=== PATIENT | female | born 1940 | race Caucasian/White ===

== ENCOUNTER 2019-11-11 19:39 | Inpatient (IN) | payer MEDICARE ==
[~2019-11-11] VITALS: Ht 149.9 cm; Wt 59.1 kg
[2019-11-11] MEDS: IV NORMAL SALINE 1000ML BAG 1,000 ML IV SCH (00:18)
[2019-11-11 20:01] LABS: BILIRUBIN,URINE NEGATIVE (NEG); CLARITY,URINE CLEAR; COLOR,URINE YELLOW; NITRITE,URINE NEGATIVE (NEG); PH,URINE 5.5 (<5.0-8.0); PROTEIN,URINE NEGATIVE (NEG-TRACE); UROBILINOGEN,URINE 0.2 mg/dL (0.2 mg/dL)
[2019-11-11 20:09] LABS: HYALINE CASTS, URINE MANY /HPF; SQUAMOUS EPITHELIAL CELL,UR MANY /LPF
[2019-11-11 20:10] LABS: BACTERIA,URINE 0 /HPF (0-FEW); RBC,URINE 0 /HPF (0-2); WBC,URINE 20-40 /HPF (0-4); YEAST,URINE PRESENT /HPF
--- NOTE | 2019-11-11 21:10 | PHYS DOC ---
Past Medical History Past Medical History: A-Fib, Diabetes-Type II, High Cholesterol Past Surgical History: No Surgical History Smoking Status: Never Smoker Alcohol Use: None General Adult EDM: Chief Complaint: NAUSEA/VOMITING/DIARRHA HPI: HPI: Patient is a 79 year old female patient who presents with nausea. Patient reports that her nausea has been continuous for the last several days. States she had been in [facility] admitted for the last 2 days, was discharged home at noon today with a prescription for Zofran and a diagnosis of intractable nausea. States that she had this at a previous time, and was never given a official diagnosis either. States she just has some abdominal discomfort. Denies any fever, denies any cough, denies any chest discomfort, does state some generalized abdominal tenderness. Also reports some increased urinary frequency. Denies dizziness, denies malaise, states she just feels like she needs to vomit. States she has not vomited for quite a while, states she has been eating and drinking when she was in the hospital Review of Systems: Review of Systems: Constitutional: Denies fever or chills. [] Eyes: Denies change in visual acuity. [] HENT: Denies nasal congestion or sore throat. [] Respiratory: Denies cough or shortness of breath. [] Cardiovascular: Denies chest pain or edema. [] GI: Denies vomiting, bloody stools or diarrhea. States nausea, abdominal discomfort [] : Reports some urinary frequency, some discomfort with urination for 2 days Musculoskeletal: Denies back pain or joint pain. [] Integument: Denies rash. [] Neurologic: Denies headache, focal weakness or sensory changes. [] Endocrine: Denies polyuria or polydipsia. [] Lymphatic: Denies swollen glands. [] Psychiatric: Denies depression or anxiety. [] Heart Score: HEART Score for Chest Pain: HEART Score for Chest Pain Response (Comments) Value History Slighlty/Non-Suspicious 0 ECG Nonspecific Repolarizatio 1 Age > 65 2 Risk Factors 1 or 2 Risk Factors 1 Troponin < Normal Limit 0 Total 4 Risk Factors: Risk Factors: DM, Current or recent (<one month) smoker, HTN, HLP, family history of CAD, obesity. Risk Scores: Score 0 - 3: 2.5% MACE over next 6 weeks - Discharge Home Score 4 - 6: 20.3% MACE over next 6 weeks - Admit for Clinical Observation Score 7 - 10: 72.7% MACE over next 6 weeks - Early Invasive Strategies Allergies: Allergies: Allergies Coded Allergies Type Severity Reaction Last Updated Verified No Known Drug Allergies 11/11/19 No Physical Exam: PE: Constitutional: Well developed, well nourished, no acute distress, non-toxic appearance. [] HENT: Normocephalic, atraumatic, bilateral external ears normal, oropharynx moist, no oral exudates, nose normal. [] Eyes: PERRLA, EOMI, conjunctiva normal, no discharge. [] Neck: Normal range of motion, no tenderness, supple, no stridor. [] Cardiovascular:Heart rate regular rhythm, no murmur [] Lungs & Thorax: Bilateral breath sounds clear to auscultation [] Abdomen: Bowel sounds normal, soft, mild tenderness noted widespread, active bowel sounds, minimally hyperactive left upper, no masses, no pulsatile masses. Bladder palpable [] Skin: Warm, dry, no erythema, no rash. [] Back: No tenderness, no CVA tenderness. [] Extremities: No tenderness, no cyanosis, no clubbing, ROM intact, no edema. [] Neurologic: Alert and oriented X 3, normal motor function, normal sensory function, no focal deficits noted. [] Psychologic: Affect normal, judgement normal, mood normal. [] Current Patient Data: Labs: Laboratory Tests Test 11/11/19 19:49 Urine Collection Type Unknown Urine Color Yellow Urine Clarity Clear Urine pH 5.5 (<5.0-8.0) Urine Specific [place] 1.020 (1.000-1.030) Urine Protein Negative mg/dL (NEG-TRACE) Urine Glucose (UA) Negative mg/dL (NEG) Urine Ketones (Stick) Negative mg/dL (NEG) Urine Blood Negative (NEG) Urine Nitrite Negative (NEG) Urine Bilirubin Negative (NEG) Urine Urobilinogen Dipstick 0.2 mg/dL (0.2 mg/dL) Urine Leukocyte Esterase Moderate (NEG) Urine RBC 0 /HPF (0-2) Urine WBC 20-40 /HPF (0-4) Urine Squamous Epithelial Cells Many /LPF Urine Transitional Epithelial Cells Few /LPF Urine Renal Epithelial Cells Few /LPF Urine Bacteria 0 /HPF (0-FEW) Urine Hyaline Casts Many /HPF Urine Mucus Marked /LPF Urine Yeast Present /HPF Vital Signs: Vital Signs Date Time Temp Pulse Resp B/P (MAP) Pulse Ox O2 Delivery O2 Flow Rate FiO2 11/11/19 20:37 98.7 69 18 155/63 (93) 95 Room Air 98.7 EKG: EKG: no acute ST changes. noted inverted T-waves I, aVL. no STEMI per Dr Roy. [] Radiology/Procedures: Radiology/Procedures: []Exam: Abdomen one view INDICATION: Abdominal pain TECHNIQUE: Supine views of the abdomen Comparisons: None FINDINGS: Air and stool are noted throughout the colon to level the rectum in a nonobstructive bowel gas pattern. No suspicious masses. Aortic calcifications are noted. Scoliotic curvature is seen in the lumbar spine. No acute fractures are identified. IMPRESSION: Nonobstructive bowel gas pattern. Electronically signed by: Kera Bhatti MD (11/11/2019 9:39 PM) [id number] Course & Med Decision Making: Course & Med Decision Making Pertinent Labs and Imaging studies reviewed. (See chart for details) [] Reviewed results, with noted UTI findings, albeit contaminated, with lactic acidosis, malaise. Will admit for treatment, evaluation as needed to manage nausea and reevaluate labs throughout the night. Discussed with Dr. Roy, agrees admission warranted. Will admit. Provide additional nausea medications, antibiotics and fluid. Dragon Disclaimer: Dragon Disclaimer: This electronic medical record was generated, in whole or in part, using a voice recognition dictation system. 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
[2019-11-11] MEDS ORDERED: METOCLOPRAMIDE HCL 10 MG/2 ML VIAL. IVP ONE (21:15)
--- NOTE | 2019-11-11 21:42 | RAD ---
Exam: Abdomen one view INDICATION: Abdominal pain TECHNIQUE: Supine views of the abdomen Comparisons: None FINDINGS: Air and stool are noted throughout the colon to level the rectum in a nonobstructive bowel gas pattern. No suspicious masses. Aortic calcifications are noted. Scoliotic curvature is seen in the lumbar spine. No acute fractures are identified. IMPRESSION: Nonobstructive bowel gas pattern. Electronically signed by: Kera Bhatti MD (11/11/2019 9:39 PM) [id number]
[2019-11-11 21:56] LABS: BASO % 0 % (0-3); EOS % 0 % (0-3); HEMATOCRIT 39.8 % (36.0-47.0); HEMOGLOBIN 13.7 g/dL (12.0-15.5); LYMPH # 1.5 x10^3/uL (1.0-4.8); LYMPH % 20 % (24-48); MEAN CORPUSCULAR HEMOGLOBIN 33 pg (25-35); MEAN CORPUSCULAR HGB CONC 34 g/dL (31-37); MEAN CORPUSCULAR VOLUME 96 fL (79-100); MONO # 0.6 x10^3/uL (0.0-1.1); MONO % 9 % (0-9); NEUT # 5.2 x10^3/uL (1.8-7.7); NEUT % 71 % (31-73); PLATELET COUNT 211 x10^3/uL (140-400); RED BLOOD COUNT 4.14 x10^6/uL (3.50-5.40); RED CELL DISTRIBUTION WIDTH 17.6 % (11.5-14.5); WHITE BLOOD COUNT 7.4 x10^3/uL (4.0-11.0)
[2019-11-11 22:06] LABS: CALCIUM 9.6 mg/dL (8.5-10.1); CREATININE 1.2 mg/dL (0.6-1.0); GFR 43.3; POTASSIUM 3.8 mmol/L (3.5-5.1)
[2019-11-11 22:12] LABS: ALBUMIN 3.7 g/dL (3.4-5.0); ALBUMIN/GLOBULIN RATIO 1.2 (1.0-1.7); TOTAL BILIRUBIN 0.2 mg/dL (0.2-1.0); TOTAL PROTEIN 6.9 g/dL (6.4-8.2)
[2019-11-11] MEDS ORDERED: MORPHINE SULFATE 2 MG/ML VIAL. IV PRN (22:45)
[2019-11-11] MEDS ORDERED: cefTRIAXone IV Push 1 GM VIAL. IVP ONE (22:45)
[2019-11-11] MEDS ORDERED: ONDANSETRON PF 4 MG/2 ML VIAL. IV ONE (22:45)
[2019-11-11] MEDS ORDERED: IV NORMAL SALINE 1000ML BAG 1,000 ML IV ONE (22:45)
[2019-11-12] MEDS: IV NORMAL SALINE 1000ML BAG 1,000 ML IV SCH ×4 (00:18→14:40)
[2019-11-12] MEDS: ONDANSETRON PF 4 MG/2 ML VIAL. IV PRN ×2 (04:47→20:15)
--- NOTE | 2019-11-12 04:54 | EKG ---
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
[2019-11-12 05:01] LABS: BASO % 1 % (0-3); EOS % 0 % (0-3); HEMATOCRIT 39.3 % (36.0-47.0); HEMOGLOBIN 13.3 g/dL (12.0-15.5); LYMPH # 1.4 x10^3/uL (1.0-4.8); LYMPH % 21 % (24-48); MEAN CORPUSCULAR HEMOGLOBIN 32 pg (25-35); MEAN CORPUSCULAR HGB CONC 34 g/dL (31-37); MEAN CORPUSCULAR VOLUME 95 fL (79-100); MONO # 0.6 x10^3/uL (0.0-1.1); MONO % 8 % (0-9); NEUT # 4.8 x10^3/uL (1.8-7.7); NEUT % 70 % (31-73); PLATELET COUNT 214 x10^3/uL (140-400); RED BLOOD COUNT 4.15 x10^6/uL (3.50-5.40); RED CELL DISTRIBUTION WIDTH 17.3 % (11.5-14.5); WHITE BLOOD COUNT 6.8 x10^3/uL (4.0-11.0)
[2019-11-12 05:38] LABS: CALCIUM 8.9 mg/dL (8.5-10.1); GFR 53.5; POTASSIUM 3.6 mmol/L (3.5-5.1)
--- NOTE | 2019-11-12 10:33 | PDOC1 ---
History and Physical Date of Admission Date of Admission DATE: 11/12/19 TIME: 10:32 Identification/Chief Complaint Chief Complaint SEEN IN ER , 79 year old female patient who presents with nausea. Patient reports that her nausea has been continuous for the last several days. States she had been in [facility] admitted for the last 2 days, was discharged home at noon today with a prescription for Zofran and a diagnosis of intractable nausea. she STILL has some ruq abdominal discomfort. Denies any fever, denies any cough, denies any chest discomfort, does state some generalized abdominal tenderness. Also reports some increased urinary frequency. Denies dizziness, denies malaise, states she just feels like she needs to vomit. States she has not vomited since yesterday Past Medical History Past Medical History Past Medical History Past Medical History: A-Fib, Diabetes-Type II, High Cholesterol Past Surgical History: No Surgical History Smoking Status: Never Smoker Alcohol Use: None fhx HTN Family History Family History: Hypertension Social History Smoke: No ALCOHOL: none Drugs: None Current Medications Current Medications Current Medications Metoclopramide HCl (Reglan Vial) 10 mg 1X ONCE IVP Last administered on 11/11/19at 21:23; Start 11/11/19 at 21:15; Stop 11/11/19 at 21:16; Status DC Sodium Chloride 1,000 ml @ 1,000 mls/hr 1X ONCE IV Last administered on 11/11/19at 23:02; Start 11/11/19 at 22:45; Stop 11/11/19 at 23:44; Status DC Ondansetron HCl (Zofran) 4 mg 1X ONCE IV Last administered on 11/11/19at 23:01; Start 11/11/19 at 22:45; Stop 11/11/19 at 22:47; Status DC Ceftriaxone Sodium (Rocephin) 1 gm 1X ONCE IVP Last administered on 11/11/19at 23:02; Start 11/11/19 at 22:45; Stop 11/11/19 at 22:46; Status DC Ondansetron HCl (Zofran) 4 mg PRN Q8HRS PRN IV NAUSEA/VOMITING Last administered on 11/12/19at 04:47; Start 11/11/19 at 22:45; Stop 11/12/19 at 22:44 Morphine Sulfate (Morphine Sulfate) 2 mg PRN Q2HR PRN IV PAIN; Start 11/11/19 at 22:45; Stop 11/12/19 at 22:44 Sodium Chloride 1,000 ml @ 125 mls/hr Q8H IV Last administered on 11/12/19at 00:18; Start 11/11/19 at 22:40; Stop 11/12/19 at 22:39 Allergies Allergies: Coded Allergies: No Known Drug Allergies (Unverified , 11/11/19) ROS Review of System Review of Systems: Review of Systems: Constitutional: Denies fever or chills. [] Eyes: Denies change in visual acuity. [] HENT: Denies nasal congestion or sore throat. [] Respiratory: Denies cough or shortness of breath. [] Cardiovascular: Denies chest pain or edema. [] GI: yesterday, vomiting, States nausea, abdominal discomfort [] : Reports some urinary frequency, some discomfort with urination for 2 days Musculoskeletal: Denies back pain or joint pain. [] Integument: Denies rash. [] Neurologic: Denies headache, focal weakness or sensory changes. [] Endocrine: Denies polyuria or polydipsia. [] Lymphatic: Denies swollen glands. [] Psychiatric: Denies depression or anxiety. [] 14 pt ros otherwise neg Physical Exam Physical Exam Constitutional: Well developed, well nourished, no acute distress, non-toxic appearance. [] HENT: Normocephalic, atraumatic, bilateral external ears normal, oropharynx moist, no oral exudates, nose normal. [] Eyes: PERRLA, EOMI, conjunctiva normal, no discharge. [] Neck: Normal range of motion, no tenderness, supple, no stridor. [] Cardiovascular:Heart rate regular rhythm, no murmur [] Lungs & Thorax: Bilateral breath sounds clear to auscultation [] Abdomen: Bowel sounds normal, soft, mild tenderness noted widespread, and ruq active bowel sounds, minimally hyperactive left upper, no masses, no pulsatile masses. Skin: Warm, dry, no erythema, no rash. [] Back: No tenderness, no CVA tenderness. [] Extremities: No tenderness, no cyanosis, no clubbing, ROM intact, no edema. [] Neurologic: Alert and oriented X 3, normal motor function, normal sensory function, no focal deficits noted. [] Psychologic: Affect normal, judgment normal, mood normal. [] General: Alert, Oriented X3, Cooperative, No acute distress HEENT: Atraumatic, EOMI, Mucous membr. moist/pink Lungs: Clear to auscultation Heart: RRR, no thrills, no gallops Breasts: Not examined Abdomen: Other (MILD RUQ TENDERNESS) Rectal Exam: not examined Extremities: No cyanosis, No edema Neuro: Normal speech, Cranial nerves 3-12 NL Psych/Mental Status: Mental status NL, Mood NL Vitals Vitals Vital Signs Date Time Temp Pulse Resp B/P (MAP) Pulse Ox O2 Delivery O2 Flow Rate FiO2 11/12/19 09:30 72 164/73 (103) 95 Nasal Cannula 2.0 11/11/19 20:37 98.7 18 98.7 Labs Labs Laboratory Tests Test 11/11/19 19:49 11/11/19 21:47 11/11/19 23:48 11/12/19 02:30 Urine Collection Type Unknown Urine Color Yellow Urine Clarity Clear Urine pH 5.5 (<5.0-8.0) Urine Specific [place] 1.020 (1.000-1.030) Urine Protein Negative mg/dL (NEG-TRACE) Urine Glucose (UA) Negative mg/dL (NEG) Urine Ketones (Stick) Negative mg/dL (NEG) Urine Blood Negative (NEG) Urine Nitrite Negative (NEG) Urine Bilirubin Negative (NEG) Urine Urobilinogen Dipstick 0.2 mg/dL (0.2 mg/dL) Urine Leukocyte Esterase Moderate (NEG) Urine RBC 0 /HPF (0-2) Urine WBC 20-40 /HPF (0-4) Urine Squamous Epithelial Cells Many /LPF Urine Transitional Epithelial Cells Few /LPF Urine Renal Epithelial Cells Few /LPF Urine Bacteria 0 /HPF (0-FEW) Urine Hyaline Casts Many /HPF Urine Mucus Marked /LPF Urine Yeast Present /HPF White Blood Count 7.4 x10^3/uL (4.0-11.0) Red Blood Count 4.14 x10^6/uL (3.50-5.40) Hemoglobin 13.7 g/dL (12.0-15.5) Hematocrit 39.8 % (36.0-47.0) Mean Corpuscular Volume 96 fL (79-100) Mean Corpuscular Hemoglobin 33 pg (25-35) Mean Corpuscular Hemoglobin Concent 34 g/dL (31-37) Red Cell Distribution Width 17.6 % (11.5-14.5) Platelet Count 211 x10^3/uL (140-400) Neutrophils (%) (Auto) 71 % (31-73) Lymphocytes (%) (Auto) 20 % (24-48) Monocytes (%) (Auto) 9 % (0-9) Eosinophils (%) (Auto) 0 % (0-3) Basophils (%) (Auto) 0 % (0-3) Neutrophils # (Auto) 5.2 x10^3/uL (1.8-7.7) Lymphocytes # (Auto) 1.5 x10^3/uL (1.0-4.8) Monocytes # (Auto) 0.6 x10^3/uL (0.0-1.1) Eosinophils # (Auto) 0.0 x10^3/uL (0.0-0.7) Basophils # (Auto) 0.0 x10^3/uL (0.0-0.2) Sodium Level 141 mmol/L (136-145) Potassium Level 3.8 mmol/L (3.5-5.1) Chloride Level 104 mmol/L (98-107) Carbon Dioxide Level 21 mmol/L (21-32) Anion Gap 16 (6-14) Blood Urea Nitrogen 18 mg/dL (7-20) Creatinine 1.2 mg/dL (0.6-1.0) Estimated GFR (Cockcroft-Gault) 43.3 BUN/Creatinine Ratio 15 (6-20) Glucose Level 157 mg/dL (70-99) Lactic Acid Level 3.2 mmol/L (0.4-2.0) 1.4 mmol/L (0.4-2.0) Calcium Level 9.6 mg/dL (8.5-10.1) Total Bilirubin 0.2 mg/dL (0.2-1.0) Aspartate Amino Transf (AST/SGOT) 43 U/L (15-37) Alanine Aminotransferase (ALT/SGPT) 56 U/L (14-59) Alkaline Phosphatase 77 U/L (46-116) Troponin I Quantitative 0.032 ng/mL (0.000-0.055) 0.026 ng/mL (0.000-0.055) Total Protein 6.9 g/dL (6.4-8.2) Albumin 3.7 g/dL (3.4-5.0) Albumin/Globulin Ratio 1.2 (1.0-1.7) Lipase 208 U/L (73-393) Test 11/12/19 04:40 11/12/19 05:03 White Blood Count 6.8 x10^3/uL (4.0-11.0) Red Blood Count 4.15 x10^6/uL (3.50-5.40) Hemoglobin 13.3 g/dL (12.0-15.5) Hematocrit 39.3 % (36.0-47.0) Mean Corpuscular Volume 95 fL (79-100) Mean Corpuscular Hemoglobin 32 pg (25-35) Mean Corpuscular Hemoglobin Concent 34 g/dL (31-37) Red Cell Distribution Width 17.3 % (11.5-14.5) Platelet Count 214 x10^3/uL (140-400) Neutrophils (%) (Auto) 70 % (31-73) Lymphocytes (%) (Auto) 21 % (24-48) Monocytes (%) (Auto) 8 % (0-9) Eosinophils (%) (Auto) 0 % (0-3) Basophils (%) (Auto) 1 % (0-3) Neutrophils # (Auto) 4.8 x10^3/uL (1.8-7.7) Lymphocytes # (Auto) 1.4 x10^3/uL (1.0-4.8) Monocytes # (Auto) 0.6 x10^3/uL (0.0-1.1) Eosinophils # (Auto) 0.0 x10^3/uL (0.0-0.7) Basophils # (Auto) 0.0 x10^3/uL (0.0-0.2) Sodium Level 142 mmol/L (136-145) Potassium Level 3.6 mmol/L (3.5-5.1) Chloride Level 105 mmol/L (98-107) Carbon Dioxide Level 23 mmol/L (21-32) Anion Gap 14 (6-14) Blood Urea Nitrogen 14 mg/dL (7-20) Creatinine 1.0 mg/dL (0.6-1.0) Estimated GFR (Cockcroft-Gault) 53.5 Glucose Level 175 mg/dL (70-99) Lactic Acid Level 1.5 mmol/L (0.4-2.0) Calcium Level 8.9 mg/dL (8.5-10.1) Troponin I Quantitative 0.041 ng/mL (0.000-0.055) Glucose (Fingerstick) 154 mg/dL (70-99) Laboratory Tests Test 11/11/19 19:49 11/11/19 21:47 11/11/19 23:48 11/12/19 02:30 Urine Collection Type Unknown Urine Color Yellow Urine Clarity Clear Urine pH 5.5 (<5.0-8.0) Urine Specific [place] 1.020 (1.000-1.030) Urine Protein Negative mg/dL (NEG-TRACE) Urine Glucose (UA) Negative mg/dL (NEG) Urine Ketones (Stick) Negative mg/dL (NEG) Urine Blood Negative (NEG) Urine Nitrite Negative (NEG) Urine Bilirubin Negative (NEG) Urine Urobilinogen Dipstick 0.2 mg/dL (0.2 mg/dL) Urine Leukocyte Esterase Moderate (NEG) Urine RBC 0 /HPF (0-2) Urine WBC 20-40 /HPF (0-4) Urine Squamous Epithelial Cells Many /LPF Urine Transitional Epithelial Cells Few /LPF Urine Renal Epithelial Cells Few /LPF Urine Bacteria 0 /HPF (0-FEW) Urine Hyaline Casts Many /HPF Urine Mucus Marked /LPF Urine Yeast Present /HPF White Blood Count 7.4 x10^3/uL (4.0-11.0) Red Blood Count 4.14 x10^6/uL (3.50-5.40) Hemoglobin 13.7 g/dL (12.0-15.5) Hematocrit 39.8 % (36.0-47.0) Mean Corpuscular Volume 96 fL (79-100) Mean Corpuscular Hemoglobin 33 pg (25-35) Mean Corpuscular Hemoglobin Concent 34 g/dL (31-37) Red Cell Distribution Width 17.6 % (11.5-14.5) Platelet Count 211 x10^3/uL (140-400) Neutrophils (%) (Auto) 71 % (31-73) Lymphocytes (%) (Auto) 20 % (24-48) Monocytes (%) (Auto) 9 % (0-9) Eosinophils (%) (Auto) 0 % (0-3) Basophils (%) (Auto) 0 % (0-3) Neutrophils # (Auto) 5.2 x10^3/uL (1.8-7.7) Lymphocytes # (Auto) 1.5 x10^3/uL (1.0-4.8) Monocytes # (Auto) 0.6 x10^3/uL (0.0-1.1) Eosinophils # (Auto) 0.0 x10^3/uL (0.0-0.7) Basophils # (Auto) 0.0 x10^3/uL (0.0-0.2) Sodium Level 141 mmol/L (136-145) Potassium Level 3.8 mmol/L (3.5-5.1) Chloride Level 104 mmol/L (98-107) Carbon Dioxide Level 21 mmol/L (21-32) Anion Gap 16 (6-14) Blood Urea Nitrogen 18 mg/dL (7-20) Creatinine 1.2 mg/dL (0.6-1.0) Estimated GFR (Cockcroft-Gault) 43.3 BUN/Creatinine Ratio 15 (6-20) Glucose Level 157 mg/dL (70-99) Lactic Acid Level 3.2 mmol/L (0.4-2.0) 1.4 mmol/L (0.4-2.0) Calcium Level 9.6 mg/dL (8.5-10.1) Total Bilirubin 0.2 mg/dL (0.2-1.0) Aspartate Amino Transf (AST/SGOT) 43 U/L (15-37) Alanine Aminotransferase (ALT/SGPT) 56 U/L (14-59) Alkaline Phosphatase 77 U/L (46-116) Troponin I Quantitative 0.032 ng/mL (0.000-0.055) 0.026 ng/mL (0.000-0.055) Total Protein 6.9 g/dL (6.4-8.2) Albumin 3.7 g/dL (3.4-5.0) Albumin/Globulin Ratio 1.2 (1.0-1.7) Lipase 208 U/L (73-393) Test 11/12/19 04:40 11/12/19 05:03 White Blood Count 6.8 x10^3/uL (4.0-11.0) Red Blood Count 4.15 x10^6/uL (3.50-5.40) Hemoglobin 13.3 g/dL (12.0-15.5) Hematocrit 39.3 % (36.0-47.0) Mean Corpuscular Volume 95 fL (79-100) Mean Corpuscular Hemoglobin 32 pg (25-35) Mean Corpuscular Hemoglobin Concent 34 g/dL (31-37) Red Cell Distribution Width 17.3 % (11.5-14.5) Platelet Count 214 x10^3/uL (140-400) Neutrophils (%) (Auto) 70 % (31-73) Lymphocytes (%) (Auto) 21 % (24-48) Monocytes (%) (Auto) 8 % (0-9) Eosinophils (%) (Auto) 0 % (0-3) Basophils (%) (Auto) 1 % (0-3) Neutrophils # (Auto) 4.8 x10^3/uL (1.8-7.7) Lymphocytes # (Auto) 1.4 x10^3/uL (1.0-4.8) Monocytes # (Auto) 0.6 x10^3/uL (0.0-1.1) Eosinophils # (Auto) 0.0 x10^3/uL (0.0-0.7) Basophils # (Auto) 0.0 x10^3/uL (0.0-0.2) Sodium Level 142 mmol/L (136-145) Potassium Level 3.6 mmol/L (3.5-5.1) Chloride Level 105 mmol/L (98-107) Carbon Dioxide Level 23 mmol/L (21-32) Anion Gap 14 (6-14) Blood Urea Nitrogen 14 mg/dL (7-20) Creatinine 1.0 mg/dL (0.6-1.0) Estimated GFR (Cockcroft-Gault) 53.5 Glucose Level 175 mg/dL (70-99) Lactic Acid Level 1.5 mmol/L (0.4-2.0) Calcium Level 8.9 mg/dL (8.5-10.1) Troponin I Quantitative 0.041 ng/mL (0.000-0.055) Glucose (Fingerstick) 154 mg/dL (70-99) Images Images PATIENT: ABRAHAN SIERRA GACCOUNT: [id number] : 1940 LOCATION: ED HOLD AGE: 79 SEX: F EXAM STATUS: ADM IN ORD. PHYSICIAN: NEREYDA GARZA MD REASON: ABDOMINAL PAIN PROCEDURE: ABDOMEN COMPLETE Examination: ABDOMEN COMPLETE History: Reason: ABDOMINAL PAIN / Spl. Instructions: / History: Comparison/Correlation: None Findings: Upper abdominal ultrasonogram were performed. Fat infiltration is present. Portal venous flow is unremarkable. No biliary dilatation. Common duct is unremarkable. Right kidney measures 11.6 cm longitudinal. Left kidney measures 10.8 cm longitudinal. No hydronephrosis. Pancreas is obscured by bowel gas. Calculus is present within the gallbladder measuring almost 3 cm in diameter. Other calculi may also be present. No findings of acute cholecystitis. Abdominal aorta and inferior vena cava are obscured by bowel gas. No upper abdominal ascites. Impression: Cholelithiasis. Electronically signed by: William Johnson MD (11/12/2019 11:47 AM) [id number] SEX: F EXAM STATUS: REG ER ORD. PHYSICIAN: PAPA PONCE APRN REASON: abdominal pain PROCEDURE: KUB Exam: Abdomen one view INDICATION: Abdominal pain TECHNIQUE: Supine views of the abdomen Comparisons: None FINDINGS: Air and stool are noted throughout the colon to level the rectum in a nonobstructive bowel gas pattern. No suspicious masses. Aortic calcifications are noted. Scoliotic curvature is seen in the lumbar spine. No acute fractures are identified. IMPRESSION: Nonobstructive bowel gas pattern. Electronically signed by: Kera Torrez MD (11/11/2019 9:39 PM) [id number] DICTATED and SIGNED BY: KERA TORREZ MD VTE Prophylaxis Ordered VTE Prophylaxis Devices: Yes VTE Pharmacological Prophylaxi: Yes Assessment/Plan Assessment/Plan Impression: Lactic acidosis RUQ PAIN UTI (urinary tract infection) Acute cystitis Intractable nausea and vomiting Calculus is present within the gallbladder measuring almost 3 cm in diameter. Other calculi may also be present. No findings of acute cholecystitis. ADMITTED NPO GI CONSULT ABD SONO IV ROCEPHIN 1 gm q 24 hrs urine culture IV FLUID SUPPORT IV ZOFRAN 4 MG Q 4 HRS PRN dvt prophylaxis D/W RN IN ER Justicifation of Admission Dx: Justifications for Admission: Justification of Admission Dx: Yes Sepsis: Infection NEREYDA GARZA MD Nov 12, 2019 10:33
[2019-11-12] MEDS ORDERED: ACETAMINOPHEN 325 MG TABLET. PO PRN (10:45)
[2019-11-12] MEDS ORDERED: DOCUSATE SODIUM 100 MG CAPSULE. PO PRN (10:45)
[2019-11-12] MEDS ORDERED: MAG HYDROX/ALUMINUM HYD/SIMETH 30 ML ORAL.SUSP PO PRN (10:45)
[2019-11-12] MEDS ORDERED: SODIUM PHOSPHATES 19/7GM 133 ML ENEMA. PR PRN (10:45)
[2019-11-12] MEDS ORDERED: 0.9 % SODIUM CHLORIDE 10 ML DISP.SYRIN. IV PRN (10:45)
[2019-11-12] MEDS ORDERED: guaiFENesin ORAL 200 MG/10 ML LIQUID. PO PRN (10:45)
[2019-11-12] MEDS ORDERED: hydrALAZINE 20 MG/ML VIAL. IVP PRN (10:45)
[2019-11-12] MEDS ORDERED: ALBUTEROL SULFATE 2.5 MG/3 ML NEBU. NEB PRN (10:45)
[2019-11-12] MEDS ORDERED: cefTRIAXone IV Push 1 GM VIAL. IVP SCH (11:00)
--- NOTE | 2019-11-12 11:50 | RAD ---
Examination: ABDOMEN COMPLETE History: Reason: ABDOMINAL PAIN / Spl. Instructions: / History: Comparison/Correlation: None Findings: Upper abdominal ultrasonogram were performed. Fat infiltration is present. Portal venous flow is unremarkable. No biliary dilatation. Common duct is unremarkable. Right kidney measures 11.6 cm longitudinal. Left kidney measures 10.8 cm longitudinal. No hydronephrosis. Pancreas is obscured by bowel gas. Calculus is present within the gallbladder measuring almost 3 cm in diameter. Other calculi may also be present. No findings of acute cholecystitis. Abdominal aorta and inferior vena cava are obscured by bowel gas. No upper abdominal ascites. Impression: Cholelithiasis. Electronically signed by: William Johnson MD (11/12/2019 11:47 AM) [id number]
[2019-11-12] MEDS ORDERED: POLYETHYLENE GLYCOL 3350 17 GM PACKET. PO PRN (12:15)
--- NOTE | 2019-11-12 12:16 | PDOC2 ---
GI CONSULT Reason For Consult: nausea, RUQ pain HPI: HPI: 79 y/o female seen in ER. Ill x 2 months - "my stomach hurts" and nausea. Has lost 25 pounds. Never vomiting. Has no appetite. Says she puts food in her mouth and spits it back out. Denies dysphagia and odynophagia. Points to lower abdomen for pain location. Pain is constant and aching. "Probably" would get worse with eating. Denies reflux, diarrhea, constipation, hematochezia, and melena. Denies liver, pancreas, and PUD history. "I have a gallbladder but it's okay." Lives with her sister. Occasional dizziness when stands up. No fever. "My urine doesn't have a color to it." Was at [facility] in 08/2019 and "had all kinds of tests" - says x-rays, EGD, colonoscopy, and GES - she says all were unrevealing. Thinks she was sent home w/ pain pills, nausea pills, and infection pills. They didn't help, so she went to and had more testing there (not sure what - doesn't think ever had head imaging). Didn't feel better so she came here. Able to review records @ [facility]: EGD by Dr. Lenin Ellington for anemia and +hemoccult showed patchy gastritis (no biopsies on anti-coagulation); H. pylori antigen negative. CTs w/ diverticulosis w/ possible sigmoid diverticulitis, gallstone, small hiatal hernia, and atherosclerosis. GI consult noted intermittent constipation improved w/ Miralax and possible improvement of abd pain after stooling, one episode of mild reflux, and intermittent pill dysphagia. Did not see records of colonoscopy or GES - seems outpt colonoscopy was scheduled at some point. A1c 9.4. PMH: PMH: A Fib, HTN, DM, HLD, hypothyroidism FH: Family History: Cancer (skin - sister) Social History: Smoke: No ALCOHOL: none Drugs: None ROS: GEN: Denies fevers, chills, sweats HEENT: Denies blurred vision, sore throat CV: Denies chest pain RESP: Denies shortness of air, cough GI: Per HPI : Denies hematuria, dysuria ENDO: +weight loss NEURO: +dizziness MSK: Denies weakness, joint pain/swelling SKIN: Denies jaundice, pruritus Vitals: Vitals: Vital Signs Date Time Temp Pulse Resp B/P (MAP) Pulse Ox O2 Delivery O2 Flow Rate FiO2 11/12/19 11:44 95 Nasal Cannula 2.0 11/12/19 10:30 70 20 169/79 (109) 11/11/19 20:37 98.7 98.7 Labs: Labs: Laboratory Tests Test 11/11/19 19:49 11/11/19 21:47 11/11/19 23:48 11/12/19 02:30 Urine Collection Type Unknown Urine Color Yellow Urine Clarity Clear Urine pH 5.5 (<5.0-8.0) Urine Specific [place] 1.020 (1.000-1.030) Urine Protein Negative mg/dL (NEG-TRACE) Urine Glucose (UA) Negative mg/dL (NEG) Urine Ketones (Stick) Negative mg/dL (NEG) Urine Blood Negative (NEG) Urine Nitrite Negative (NEG) Urine Bilirubin Negative (NEG) Urine Urobilinogen Dipstick 0.2 mg/dL (0.2 mg/dL) Urine Leukocyte Esterase Moderate (NEG) Urine RBC 0 /HPF (0-2) Urine WBC 20-40 /HPF (0-4) Urine Squamous Epithelial Cells Many /LPF Urine Transitional Epithelial Cells Few /LPF Urine Renal Epithelial Cells Few /LPF Urine Bacteria 0 /HPF (0-FEW) Urine Hyaline Casts Many /HPF Urine Mucus Marked /LPF Urine Yeast Present /HPF White Blood Count 7.4 x10^3/uL (4.0-11.0) Red Blood Count 4.14 x10^6/uL (3.50-5.40) Hemoglobin 13.7 g/dL (12.0-15.5) Hematocrit 39.8 % (36.0-47.0) Mean Corpuscular Volume 96 fL (79-100) Mean Corpuscular Hemoglobin 33 pg (25-35) Mean Corpuscular Hemoglobin Concent 34 g/dL (31-37) Red Cell Distribution Width 17.6 % (11.5-14.5) Platelet Count 211 x10^3/uL (140-400) Neutrophils (%) (Auto) 71 % (31-73) Lymphocytes (%) (Auto) 20 % (24-48) Monocytes (%) (Auto) 9 % (0-9) Eosinophils (%) (Auto) 0 % (0-3) Basophils (%) (Auto) 0 % (0-3) Neutrophils # (Auto) 5.2 x10^3/uL (1.8-7.7) Lymphocytes # (Auto) 1.5 x10^3/uL (1.0-4.8) Monocytes # (Auto) 0.6 x10^3/uL (0.0-1.1) Eosinophils # (Auto) 0.0 x10^3/uL (0.0-0.7) Basophils # (Auto) 0.0 x10^3/uL (0.0-0.2) Sodium Level 141 mmol/L (136-145) Potassium Level 3.8 mmol/L (3.5-5.1) Chloride Level 104 mmol/L (98-107) Carbon Dioxide Level 21 mmol/L (21-32) Anion Gap 16 (6-14) Blood Urea Nitrogen 18 mg/dL (7-20) Creatinine 1.2 mg/dL (0.6-1.0) Estimated GFR (Cockcroft-Gault) 43.3 BUN/Creatinine Ratio 15 (6-20) Glucose Level 157 mg/dL (70-99) Lactic Acid Level 3.2 mmol/L (0.4-2.0) 1.4 mmol/L (0.4-2.0) Calcium Level 9.6 mg/dL (8.5-10.1) Total Bilirubin 0.2 mg/dL (0.2-1.0) Aspartate Amino Transf (AST/SGOT) 43 U/L (15-37) Alanine Aminotransferase (ALT/SGPT) 56 U/L (14-59) Alkaline Phosphatase 77 U/L (46-116) Troponin I Quantitative 0.032 ng/mL (0.000-0.055) 0.026 ng/mL (0.000-0.055) Total Protein 6.9 g/dL (6.4-8.2) Albumin 3.7 g/dL (3.4-5.0) Albumin/Globulin Ratio 1.2 (1.0-1.7) Lipase 208 U/L (73-393) Test 11/12/19 04:40 11/12/19 05:03 White Blood Count 6.8 x10^3/uL (4.0-11.0) Red Blood Count 4.15 x10^6/uL (3.50-5.40) Hemoglobin 13.3 g/dL (12.0-15.5) Hematocrit 39.3 % (36.0-47.0) Mean Corpuscular Volume 95 fL (79-100) Mean Corpuscular Hemoglobin 32 pg (25-35) Mean Corpuscular Hemoglobin Concent 34 g/dL (31-37) Red Cell Distribution Width 17.3 % (11.5-14.5) Platelet Count 214 x10^3/uL (140-400) Neutrophils (%) (Auto) 70 % (31-73) Lymphocytes (%) (Auto) 21 % (24-48) Monocytes (%) (Auto) 8 % (0-9) Eosinophils (%) (Auto) 0 % (0-3) Basophils (%) (Auto) 1 % (0-3) Neutrophils # (Auto) 4.8 x10^3/uL (1.8-7.7) Lymphocytes # (Auto) 1.4 x10^3/uL (1.0-4.8) Monocytes # (Auto) 0.6 x10^3/uL (0.0-1.1) Eosinophils # (Auto) 0.0 x10^3/uL (0.0-0.7) Basophils # (Auto) 0.0 x10^3/uL (0.0-0.2) Sodium Level 142 mmol/L (136-145) Potassium Level 3.6 mmol/L (3.5-5.1) Chloride Level 105 mmol/L (98-107) Carbon Dioxide Level 23 mmol/L (21-32) Anion Gap 14 (6-14) Blood Urea Nitrogen 14 mg/dL (7-20) Creatinine 1.0 mg/dL (0.6-1.0) Estimated GFR (Cockcroft-Gault) 53.5 Glucose Level 175 mg/dL (70-99) Lactic Acid Level 1.5 mmol/L (0.4-2.0) Calcium Level 8.9 mg/dL (8.5-10.1) Troponin I Quantitative 0.041 ng/mL (0.000-0.055) Glucose (Fingerstick) 154 mg/dL (70-99) Allergies: Coded Allergies: No Known Drug Allergies (Unverified , 11/11/19) Medications: Current Medications Medications (Trade) Dose Ordered Sig/Desmond Route PRN Reason Start Time Stop Time Status Last Admin Dose Admin Metoclopramide HCl (Reglan Vial) 10 mg 1X ONCE IVP 11/11/19 21:15 11/11/19 21:16 DC 11/11/19 21:23 Sodium Chloride 1,000 ml @ 1,000 mls/hr 1X ONCE IV 11/11/19 22:45 11/11/19 23:44 DC 11/11/19 23:02 Ondansetron HCl (Zofran) 4 mg 1X ONCE IV 11/11/19 22:45 11/11/19 22:47 DC 11/11/19 23:01 Ceftriaxone Sodium (Rocephin) 1 gm 1X ONCE IVP 11/11/19 22:45 11/11/19 22:46 DC 11/11/19 23:02 Ondansetron HCl (Zofran) 4 mg PRN Q8HRS PRN IV NAUSEA/VOMITING 11/11/19 22:45 11/12/19 22:44 11/12/19 04:47 Sodium Chloride 1,000 ml @ 125 mls/hr Q8H IV 11/11/19 22:40 11/12/19 22:39 11/12/19 00:18 Imaging: Imaging: [facility] 11/11 IMPRESSION: Nonobstructive bowel gas pattern. Abd US 11/11 pending PE: GEN: NAD HEENT: Atraumatic, PERRL LUNGS: clear, NC 2L HEART: RRR ABD: NABS, S/ND, suprapubic discomfort EXTREMITY: No edema SKIN: No rashes, no jaundice NEURO/PSYCH: A & O 3 A/P: A/P: Anorexia, nausea, weight loss, suprapubic pain ?UTI, elevated lactic acid (mild - resolved), very mildly elevated AST CRC screen - ?recent colonoscopy Diverticular disease Cholelithiasis - on CT @ [facility] A Fib, HTN, DM, atherosclerosis -- Past workup at [facility] and including EGD and CTs. Note orders for abd US. ?mild reflux on recent EGD - start PPI, use anti-emetics per Dr. Sinclair. Okay to eat per GI. On Miralax in the past - resume. Will ask for [facility] records. Await urine culture. PUNEET ELIZABETH Nov 12, 2019 12:16
[2019-11-12] MEDS: ENOXAPARIN 40 MG/0.4 ML SYRINGE. SQ SCH (13:38)
--- NOTE | 2019-11-12 15:25 | NUR ---
Patient Esperanza Bennett , 79 year old female, admitted due to nausea, vomiting, arrived via bed at 1410. She's alert, oriented x4, on O2 at 2LPM, denies pain. Belongings checked and oriented to the unit. She's placed on comfortable position, call light placed within reach.
[2019-11-12 15:28] VITALS: BP 147/68
[2019-11-12] MEDS ORDERED: ACET325T21 PO (16:19)
[2019-11-12] MEDS ORDERED: AMLO5TAB10 PO (16:21)
[2019-11-12] MEDS ORDERED: AMIO200T4 PO (16:21)
[2019-11-12] MEDS ORDERED: APIX5TAB PO (16:22)
[2019-11-12] MEDS ORDERED: LIPITOR80 MG PO (16:23)
[2019-11-12] MEDS ORDERED: CANA100T PO (16:23)
[2019-11-12] MEDS ORDERED: BRIM5DRO2 OP (16:24)
[2019-11-12] MEDS ORDERED: DICY10CA3 PO (16:25)
[2019-11-12] MEDS ORDERED: GLIM4TAB8 PO (18:00)
[2019-11-12] MEDS ORDERED: LATA2.5D3 EACHEYE (18:01)
[2019-11-12] MEDS ORDERED: LEVO25TA4 PO (18:02)
[2019-11-12] MEDS ORDERED: LOSA100T14 PO (18:03)
[2019-11-12] MEDS ORDERED: METF10007 PO (18:03)
[2019-11-12] MEDS ORDERED: METO-239 PO (18:04)
[2019-11-12] MEDS ORDERED: ONDA4TAB12 PO (18:05)
[2019-11-12] MEDS ORDERED: PANT20TA2 PO (18:06)
[2019-11-12] MEDS ORDERED: SITA100T PO (18:07)
[2019-11-12] MEDS ORDERED: SERT50TA PO (18:07)
[2019-11-12] MEDS ORDERED: MULT-114 PO (18:09)
--- NOTE | 2019-11-12 18:14 | NUR ---
request for medical records, faxed to [facility] this afternoon, awaiting response
[2019-11-12 19:20] VITALS: BP 176/71
[2019-11-12] MEDS: cefTRIAXone IV Push 1 GM VIAL. IVP SCH (20:56)
[2019-11-12 23:42] VITALS: BP 148/54
[2019-11-13] VITALS (9 sets, daily range): BP systolic 135–171; BP diastolic 60–75
[2019-11-13] MEDS: IV NORMAL SALINE 1000ML BAG 1,000 ML IV SCH ×2 (00:53→17:03)
[2019-11-13] MEDS: PANTOPRAZOLE 40 MG TABLET.DR. PO SCH (08:04)
[2019-11-13] MEDS: ONDANSETRON PF 4 MG/2 ML VIAL. IV PRN (08:04)
[2019-11-13] MEDS: POLYETHYLENE GLYCOL 3350 17 GM PACKET. PO SCH (09:00)
--- NOTE | 2019-11-13 09:48 | PDOC ---
Subjective: Subjective: Ate some yesterday, doesn't want to eat this morning because she felt nauseated recently. Stooled - that helped? "All over" abdominal pain. Can't remember where she had a colonoscopy. Objective: Objective: [facility] records received: EGD - normal esophagus, stomach, and duodenum - no biopsies. Colonoscopy - four small polyps (ascending, transverse, sigmoid) not resected on Eliquis, zavala diverticulosis, internal and external hemorrhoids. Vital Signs: Vital Signs Date Time Temp Pulse Resp B/P (MAP) Pulse Ox O2 Delivery O2 Flow Rate FiO2 11/13/19 07:15 97.6 73 18 169/71 (103) 97 Nasal Cannula 2.0 97.6 Labs: Laboratory Tests Test 11/12/19 16:01 11/12/19 21:22 11/13/19 07:47 Glucose (Fingerstick) 207 mg/dL 108 mg/dL 160 mg/dL URINE CULTURE Final Final 10,000 CFU/ML Normal genitourinary lyn, not indicative of infection on 11/13/19 at 0926 Imaging: Abd US 11/11 Findings: Upper abdominal ultrasonogram were performed. Fat infiltration is present. Portal venous flow is unremarkable. No biliary dilatation. Common duct is unremarkable. Right kidney measures 11.6 cm longitudinal. Left kidney measures 10.8 cm longitudinal. No hydronephrosis. Pancreas is obscured by bowel gas. Calculus is present within the gallbladder measuring almost 3 cm in diameter. Other calculi may also be present. No findings of acute cholecystitis. Abdominal aorta and inferior vena cava are obscured by bowel gas. No upper abdominal ascites. Impression: Cholelithiasis. PE: GEN: NAD - up in chair, breakfast tray untouched, has emesis basin handy LUNGS: clear, NC 2L HEART: RRR ABD: soft, mostly suprapubic discomfort NEURO/PSYCH: A & O 3, forgetful A/P: Anorexia, nausea, abd pain - recent EGD x 2, also recent colonoscopy Known cholelithiasis A Fib, HTN, DM, atherosclerosis -- Will review any need for further GI testing w/ Dr. Plaza. Continue PPI and Miralax. Needs follow-up on colon polyps eventually. Defer antibiotics, anti-coagulation, home meds to primary. Justicifation of Admission Dx: Justifications for Admission: Justification of Admission Dx: Yes Sepsis: Infection PUNEET ELIZABETH Nov 13, 2019 09:48
[2019-11-13] MEDS: ENOXAPARIN 40 MG/0.4 ML SYRINGE. SQ SCH (11:49)
--- NOTE | 2019-11-13 12:35 | NUR ---
SW following. Reviewed chart and spoke with RN and CM. Spoke with Dr. Peraza who stated pt is a potential discharge for 11/14/2019. Pt from home and stated no concerns about returning home. Pt on 2l 02. Pt stated no 02 at home. Pt on IV Rocephin. SW to continue following.
--- NOTE | 2019-11-13 14:09 | PDOC ---
[employer]GRESS NOTE Chief Complaint Chief Complaint Lactic acidosisimproved Abdominal pain secondary to cholelithiasis with likely biliary colic UTI (urinary tract infection) Acute cystitis Intractable nausea and vomiting Acute renal failure improved PLAN Continue IV fluids PT OT evaluation Zofran as needed Orthostatic vital signs Will continue empiric antibiotics and stop before discharge Lovenox for DVT prophylaxis Regular diet Full code Discussed with RN and CARLIE Dispo: Pending PT OT evaluation anticipate discharge for tomorrow. History of Present Illness History of Present Illness 79 year old female patient who presents with nausea. Patient reports that her nausea has been continuous for the last several days. States she had been in [facility] admitted for the last 2 days, was discharged home at noon today with a prescription for Zofran and a diagnosis of intractable nausea. she STILL has some ruq abdominal discomfort. Denies any fever, denies any cough, denies any chest discomfort, does state some generalized abdominal tenderness. Also reports some increased urinary frequency. Denies dizziness, denies malaise, states she just feels like she needs to vomit. States she has not vomited since yesterday 11/13/2019 No acute events overnight. Patient seen and examined bedside today. Patient continues to complain of nausea. Upon further questioning, she states that she is gets nauseated when getting out of bed and moving. There is no association with meals. She does not have any acute vomiting at this time. There is no vertigo or nystagmus appreciated. Patient denies any recent falls. Patient has tolerating diet and is ambulating on her own. Vitals/I&O Vitals/I&O: Vital Signs Date Time Temp Pulse Resp B/P (MAP) Pulse Ox O2 Delivery O2 Flow Rate FiO2 11/13/19 11:50 72 171/68 11/13/19 11:11 98.7 17 94 Nasal Cannula 2.0 98.7 I & O 11/12/19 11/12/19 11/13/19 15:00 23:00 07:00 Intake Total 1000 ml 550 ml 240 ml Balance 1000 ml 550 ml 240 ml Physical Exam Physical Exam: General: Alert, Oriented X3, Cooperative, No acute distress HEENT: Atraumatic, EOMI, Mucous membr. moist/pink Lungs: Clear to auscultation Heart: RRR, no thrills, no gallops Breasts: Not examined Abdomen: Other (MILD RUQ TENDERNESS) Rectal Exam: not examined Extremities: No cyanosis, No edema Neuro: Normal speech, Cranial nerves 3-12 NL Psych/Mental Status: Mental status NL, Mood NL General: Alert, Oriented X3, Cooperative, No acute distress Abdomen: Other (MILD RUQ TENDERNESS) Extremities: No cyanosis, No edema Labs Labs: Laboratory Tests Test 11/12/19 16:01 11/12/19 21:22 11/13/19 07:47 11/13/19 11:34 Glucose (Fingerstick) 207 mg/dL (70-99) 108 mg/dL (70-99) 160 mg/dL (70-99) 173 mg/dL (70-99) Review of Systems Review of Systems: CONSTITUIONAL: Denies weight loss, fever and chills. HEENT: Denies changes in vision and hearing. RESPIRATORY: Denies SOB and cough. CV: Denies palpitations and CP. GI: Denies abdominal pain, nausea, vomiting and diarrhea. : Denies dysuria and urinary frequency. MSK: Denies myalgia and joint pain. SKIN: Denies rash and pruritus. NEUROLOGICAL: Denies headache and syncope. PSYCHIATRIC: Denies recent changes in mood. Denies anxiety and depression. Comment Review of Relevant I have reviewed the following items ivan (where applicable) has been applied. Medications: Current Medications Medications (Trade) Dose Ordered Sig/Desmond Route PRN Reason Start Time Stop Time Status Last Admin Dose Admin Pantoprazole Sodium (Protonix) 40 mg DAILYAC PO 11/13/19 07:30 11/13/19 08:04 Ceftriaxone Sodium (Rocephin) 1 gm QHS IVP 11/12/19 21:00 11/12/19 20:56 Justicifation of Admission Dx: Justifications for Admission: Justification of Admission Dx: Yes Sepsis: Infection VIET GIANG MD Nov 13, 2019 14:09
[2019-11-13] MEDS: LOSARTAN POTASSIUM 50 MG TABLET. PO SCH (14:23)
[2019-11-13] MEDS: amLODIPine BESYLATE 5 MG TABLET PO SCH (14:24)
[2019-11-13] MEDS: LEVOTHYROXINE 25 MCG TABLET. PO SCH (14:24)
[2019-11-13] MEDS: APIXABAN 5 MG TABLET. PO SCH ×2 (14:24→20:29)
[2019-11-13] MEDS: METOPROLOL SUCC 24HR ER 25 MG TAB.ER.24H. PO SCH (14:25)
[2019-11-13] MEDS ORDERED: ANTI-COAG MONITOR BY PHARMACY. MC PRN (17:00)
[2019-11-13] MEDS: cefTRIAXone IV Push 1 GM VIAL. IVP SCH (20:29)
[2019-11-14 03:07] VITALS: BP 148/63
[2019-11-14] MEDS: LEVOTHYROXINE 25 MCG TABLET. PO SCH (05:29)
[2019-11-14] MEDS: IV NORMAL SALINE 1000ML BAG 1,000 ML IV SCH (05:29)
[2019-11-14 07:50] VITALS: BP 156/59
[2019-11-14] MEDS: METOPROLOL SUCC 24HR ER 25 MG TAB.ER.24H. PO SCH (08:49)
[2019-11-14] MEDS: POLYETHYLENE GLYCOL 3350 17 GM PACKET. PO SCH (08:51)
[2019-11-14] MEDS: amLODIPine BESYLATE 5 MG TABLET PO SCH (08:51)
[2019-11-14] MEDS: LOSARTAN POTASSIUM 50 MG TABLET. PO SCH (08:51)
[2019-11-14] MEDS: APIXABAN 5 MG TABLET. PO SCH (08:52)
[2019-11-14] MEDS: PANTOPRAZOLE 40 MG TABLET.DR. PO SCH (08:52)
[2019-11-14] MEDS: ENOXAPARIN 40 MG/0.4 ML SYRINGE. SQ SCH (11:00)
--- NOTE | 2019-11-14 11:15 | PDOC ---
Subjective: Subjective: Better today - ate some, nausea not bothersome. Stooled yesterday, not yet today. Feels well enough to go home. Lower abd discomfort. Objective: Objective: D/w Dr. Peraza - consideration for DC today after therapy sees. Vital Signs: Vital Signs Date Time Temp Pulse Resp B/P (MAP) Pulse Ox O2 Delivery O2 Flow Rate FiO2 11/14/19 08:51 68 156/59 11/14/19 08:00 Room Air 11/14/19 07:50 98.0 18 97 98.0 11/13/19 15:33 2.0 Labs: Laboratory Tests Test 11/13/19 11:34 11/13/19 16:32 11/13/19 20:38 11/14/19 07:18 Glucose (Fingerstick) 173 mg/dL (70-99) 152 mg/dL (70-99) 166 mg/dL (70-99) 196 mg/dL (70-99) Test 11/14/19 11:10 Glucose (Fingerstick) 217 mg/dL (70-99) PE: GEN: NAD, up in chair LUNGS: clear anteriorly HEART: RRR ABD: soft, suprapubic discomfort NEURO/PSYCH: A & O 3 A/P: Anorexia, nausea - better; ?GERD - recent workup @ [facility] and [facility] Suprapubic discomfort - urine cx neg Cholelithiasis -- DC okay w/ GI. Continue PPI - discussed in detail w/ her. Can follow-up as outpt if ongoing issues, consider GES. Re: elevated lactate - does take metformin which can cause. Justicifation of Admission Dx: Justifications for Admission: Justification of Admission Dx: Yes Sepsis: Infection PUNEET ELIZABETH Nov 14, 2019 11:15
[2019-11-14 11:18] VITALS: BP 159/65
[2019-11-14] MEDS ORDERED: ONDANSETRON ODT 4 MG TAB.RAPDIS. PO PRN (12:30)
--- NOTE | 2019-11-14 12:34 | SNU/HH DC ---
DISCHARGE WITH HOME HEALTH DISCHARGE INFORMATION: Discharge Date: Nov 14, 2019 Condition on Discharge: Stable CODE STATUS: Code Status: Full HOME HEALTH: Face to Face: I certify this patient is under my care and that I, or a nurse practitioner or rosalva jackson[employer] music assistant working with me, had a face to face encounter that meets the physician face to face encounter requirements with this patient on []. Alf For: Diabetic Care, Medication Management RN For Eval/Treatment: Yes Physical Therapy For: Evalulation/Treatment Occupational Therapy For: Evaluation/Treatment Home Health Aide For: Self-care Pt Meets Homebound Status: Unsteady balance w/ amb, POST DISCHARGE ORDERS: Activity Instructions for Disc: Resume previous activity DIET AFTER DISCHARGE: ADA CHECKS AFTER DISCHARGE: Checks after discharge: Check blood press - daily, Check blood sugar, ac/hs FOLLOW-UP: Follow up with: follow up with GI for colonoscopy if needed CERTIFICATION STATEMENT: Certification Statement: Certification Statement: Based on the above finding, I certify that this patient is confined to the home and needs intermittent mcc care, physical therapy and/or speech therapy, or continues to need occupational therapy.~ This patient is under my care, and I have initiated the establishment of the plan of care.~ This patient will be followed by myself or a community physician who will periodically review the plan of care. Home Meds Reported Medications Multivitamin With Minerals (MULTIVITAMINS WITH MINERALS) 1 Each Tablet, 1 TAB PO DAILY for supplement for 30 Days, #30 TAB 0 Refills 15/20 Sitagliptin Phosphate (JANUVIA) 100 Mg Tablet, 1 TAB PO DAILY for diabetes, #30 TAB 5 Refills 15/20 Sertraline Hcl (ZOLOFT) 50 Mg Tablet, 1 TAB PO DAILY for depression, #30 TAB 2 Refills 15/20 Pantoprazole Sodium (PROTONIX) 20 Mg Tablet.dr, 1 TAB PO BID for GERD, #30 TAB 7/15/20 Ondansetron (ONDANSETRON ODT) 4 Mg Tab.rapdis, 1 TAB PO PRN Q6-8HRS for nausea, vomiting, #16 TAB /15/20 Metoprolol Succinate (METOPROLOL SUCCINATE ( XL )) 25 Mg Tab.er.24h, 0.5 TAB PO DAILY for hypertension, #30 TAB 5 Refills 15/20 Metformin Hcl (METFORMIN HCL) 1,000 Mg Tablet, 1000 MG PO BIDWMEALS for diabetes, TAB 11/12/19 Losartan Potassium (LOSARTAN POTASSIUM) 100 Mg Tablet, 100 MG PO DAILY for HYPERTENSION, TAB 11/12/19 Levothyroxine Sodium (LEVOTHYROXINE SODIUM) 25 Mcg Tablet, 1 TAB PO DAILY for hypothyroidism, #30 TAB 5 Refills 11/12/19 Latanoprost (LATANOPROST) 2.5 Ml Drops, 1 DROP EACHEYE QHS for cataract, #7.5 ML 3 Refills 11/12/19 Glimepiride (GLIMEPIRIDE) 4 Mg Tablet, 1 TAB PO DAILY for diabetes, #30 TAB 5 Refills 11/12/19 Dicyclomine Hcl (DICYCLOMINE HCL) 10 Mg Capsule, 10 MG PO QID for abdominal pain, CAP 11/12/19 Brimonidine Tartrate/Timolol (COMBIGAN EYE DROPS) 5 Ml Drops, 5 ML OP BID for cataract, DROP 11/12/19 Canagliflozin (INVOKANA) 100 Mg Tablet, 1 TAB PO DAILY for diabetes for 30 Days, #30 TAB 0 Refills 11/12/19 Atorvastatin Calcium (LIPITOR) 80 Mg Tablet, 1 TAB PO DAILY for hyperlipidemia, #30 TAB 5 Refills 11/12/19 Apixaban (ELIQUIS) 5 Mg Tablet, 5 MG PO BID for A fib, TAB 11/12/19 Amlodipine Besylate (AMLODIPINE BESYLATE) 5 Mg Tablet, 5 MG PO DAILY for hypertension, TAB 11/12/19 Amiodarone Hcl (AMIODARONE HCL) 200 Mg Tablet, 2 TAB PO DAILY for A fib, #90 TAB 1 Refill 11/12/19 Acetaminophen (ACETAMINOPHEN) 325 Mg Tablet, 2 TAB PO PRN DAILY PRN for pain or fever for 30 Days, #30 TAB 0 Refills 11/12/19 VIET GIANG MD Nov 14, 2019 12:34
--- NOTE | 2019-11-14 12:35 | NUR ---
CARLIE following. Reviewed chart and spoke with RN and CM. PT/OT recommendation is home with HH. Spoke with pt who is agreeable to a referral for HH. CARLIE phoned and faxed referral to [facility], , (fax). Patient Choice of Vendor form completed. [facility] verified that they take pt's insurance. Coordinated care with Dr. Peraza. Pt to discharge home today with her sister and HH on room air and oral medications. CARLIE awaiting final discharge orders. Addendum: 11/14/19 at 1611 by TRINITY SEXTON Final discharge orders phoned and faxed to [facility], , (fax).
--- NOTE | 2019-11-14 14:40 | PDOC3 ---
[facility]-Discharge Summary Date of Admission: Date of Admission: Nov 12, 2019 Date of Discharge: Date of Discharge: Nov 14, 2019 Admission Diagnosis: Admitting Diagnosis: Lactic acidosis RUQ PAIN secondary to likely cholelithiasis UTI (urinary tract infection) Acute cystitis Intractable nausea and vomiting Discharge Diagnosis: Discharge Diagnosis: Lactic acidosisimproved Abdominal pain secondary to cholelithiasis with likely biliary colic UTI (urinary tract infection) Acute cystitis Intractable nausea and vomiting Acute renal failure due to vasomotor nephropathyimproved Hospital Course: Hospital Course: 79 year old female patient who presents with nausea. Patient reports that her nausea has been continuous for the last several days. States she had been in [facility] admitted for the last 2 days, was discharged home at noon today with a prescription for Zofran and a diagnosis of intractable nausea. she STILL has some ruq abdominal discomfort. Denies any fever, denies any cough, denies any chest discomfort, does state some generalized abdominal tenderness. Also reports some increased urinary frequency. Denies dizziness, denies malaise, states she just feels like she needs to vomit. States she has not vomited since yesterday Patient admitted for further care and was treated with IV antibiotics and IV antiemetic medications. Her symptoms had some improved slightly upon further history taking patient states that her nausea occurs while getting out of bed. Her nausea has no association with pain or meals. At this point physical therapy was ordered to evaluate who recommended home health and physical therapy and possible some vestibular rehab. Orthostatic vital signs was completed during hospital stay and was negative. On day of discharge patient's symptoms had improved and states that she was ready to go home. Patient was also seen by gastroenterology for her previous history of colon polyps and GI bleeding. She will be evaluated as an outpatient. Rest of hospital course was uneventful Disposition: Disposition/Orders: D/C to Home w/ HH Activity: Activity: Resume previous activity Diet: Diet: Soft Medications: Home Meds Reported Medications Multivitamin With Minerals (MULTIVITAMINS WITH MINERALS) 1 Each Tablet, 1 TAB PO DAILY for supplement for 30 Days, #30 TAB 0 Refills 11/12/19 Sitagliptin Phosphate (JANUVIA) 100 Mg Tablet, 1 TAB PO DAILY for diabetes, #30 TAB 5 Refills 20 Sertraline Hcl (ZOLOFT) 50 Mg Tablet, 1 TAB PO DAILY for depression, #30 TAB 2 Refills 11/12/19 Pantoprazole Sodium (PROTONIX) 20 Mg Tablet.dr, 1 TAB PO BID for GERD, #30 TAB 11/12/19 Ondansetron (ONDANSETRON ODT) 4 Mg Tab.rapdis, 1 TAB PO PRN Q6-8HRS for nausea, vomiting, #16 TAB 11/12/19 Metoprolol Succinate (METOPROLOL SUCCINATE ( XL )) 25 Mg Tab.er.24h, 0.5 TAB PO DAILY for hypertension, #30 TAB 5 Refills 11/12/19 Metformin Hcl (METFORMIN HCL) 1,000 Mg Tablet, 1000 MG PO BIDWMEALS for diabetes, TAB 11/12/19 Losartan Potassium (LOSARTAN POTASSIUM) 100 Mg Tablet, 100 MG PO DAILY for HYPERTENSION, TAB 11/12/19 Levothyroxine Sodium (LEVOTHYROXINE SODIUM) 25 Mcg Tablet, 1 TAB PO DAILY for hypothyroidism, #30 TAB 5 Refills 11/12/19 Latanoprost (LATANOPROST) 2.5 Ml Drops, 1 DROP EACHEYE QHS for cataract, #7.5 ML 3 Refills 11/12/19 Dicyclomine Hcl (DICYCLOMINE HCL) 10 Mg Capsule, 10 MG PO QID for abdominal pain, CAP 11/12/19 Brimonidine Tartrate/Timolol (COMBIGAN EYE DROPS) 5 Ml Drops, 5 ML OP BID for cataract, DROP 11/12/19 Canagliflozin (INVOKANA) 100 Mg Tablet, 1 TAB PO DAILY for diabetes for 30 Days, #30 TAB 0 Refills 11/12/19 Atorvastatin Calcium (LIPITOR) 80 Mg Tablet, 1 TAB PO DAILY for hyperlipidemia, #30 TAB 5 Refills 11/12/19 Apixaban (ELIQUIS) 5 Mg Tablet, 5 MG PO BID for A fib, TAB 11/12/19 Amlodipine Besylate (AMLODIPINE BESYLATE) 5 Mg Tablet, 5 MG PO DAILY for hypertension, TAB 11/12/19 Amiodarone Hcl (AMIODARONE HCL) 200 Mg Tablet, 2 TAB PO DAILY for A fib, #90 TAB 1 Refill 11/12/19 Discontinued Reported Medications Glimepiride (GLIMEPIRIDE) 4 Mg Tablet, 1 TAB PO DAILY for diabetes, #30 TAB 5 Refills 11/12/19 Acetaminophen (ACETAMINOPHEN) 325 Mg Tablet, 2 TAB PO PRN DAILY PRN for pain or fever for 30 Days, #30 TAB 0 Refills 11/12/19 Scheduled Amiodarone Hcl (Amiodarone Hcl), 2 TAB PO DAILY, (Reported) Amlodipine Besylate (Amlodipine Besylate), 5 MG PO DAILY, (Reported) Apixaban (Eliquis), 5 MG PO BID, (Reported) Atorvastatin Calcium (Lipitor), 1 TAB PO DAILY, (Reported) Brimonidine Tartrate/Timolol (Combigan Eye Drops), 5 ML OP BID, (Reported) Canagliflozin (Invokana), 1 TAB PO DAILY, (Reported) Dicyclomine Hcl (Dicyclomine Hcl), 10 MG PO QID, (Reported) Latanoprost (Latanoprost), 1 DROP EACHEYE QHS, (Reported) Levothyroxine Sodium (Levothyroxine Sodium), 1 TAB PO DAILY, (Reported) Losartan Potassium (Losartan Potassium), 100 MG PO DAILY, (Reported) Metformin Hcl (Metformin Hcl), 1,000 MG PO BIDWMEALS, (Reported) Metoprolol Succinate (Metoprolol Succinate ( Xl )), 0.5 TAB PO DAILY, (Reported) Multivitamin With Minerals (Multivitamins With Minerals), 1 TAB PO DAILY, (Reported) Ondansetron (Ondansetron Odt), 1 TAB PO PRN Q6-8HRS, (Reported) Pantoprazole Sodium (Protonix), 1 TAB PO BID, (Reported) Sertraline Hcl (Zoloft), 1 TAB PO DAILY, (Reported) Sitagliptin Phosphate (Januvia), 1 TAB PO DAILY, (Reported) Discontinued Medications Acetaminophen (Acetaminophen), 2 TAB PO PRN DAILY PRN for pain or fever, (Reported) Glimepiride (Glimepiride), 1 TAB PO DAILY, (Reported) Total Time: Total Time: Total time spent was greater than 35 minutes Justicifation of Admission Dx: Justifications for Admission: Justification of Admission Dx: Yes Sepsis: Infection VIET GIANG MD Nov 14, 2019 14:40
[2019-11-14] MEDS: ONDANSETRON PF 4 MG/2 ML VIAL. IV PRN (14:42)
[2019-11-14 15:39] VITALS: BP 147/72
== END 2019-11-14 17:30 | disposition home health service (06) | DRG 444 ==
LOC: ER 19:39 → ED HOLD 20:39 → 6 SOUTH 23:47 → OBSVTOIN 11-12 15:47
PROVIDERS: ADMIT Internal Medicine; ATTEND Internal Medicine
DX: K80.20 Calculus of gallbladder without cholecystitis without obstruction (principal); N17.0 Acute kidney failure with tubular necrosis; N30.00 Acute cystitis without hematuria; E87.2 Acidosis; E03.9 Hypothyroidism, unspecified; E11.9 Type 2 diabetes mellitus without complications; E78.00 Pure hypercholesterolemia, unspecified; K63.5 Polyp of colon; K59.00 Constipation, unspecified; K57.90 Diverticulosis of intestine, part unspecified, without perforation or abscess without bleeding; I10 Essential (primary) hypertension; E78.5 Hyperlipidemia, unspecified; I48.91 Unspecified atrial fibrillation; Z82.49 Family history of ischemic heart disease and other diseases of the circulatory system; Z87.19 Personal history of other diseases of the digestive system; Z80.8 Family history of malignant neoplasm of other organs or systems
CPT/HCPCS: 36415; 74018; 76700; 80048; 80053; 81001; 82962; 83605; 83690; 84484; 85025; 87040; 87086; 93005; 94760; 96374; 96375; 96376; 99285; G0378; G0379; J0360; J0696; J1650; J2405; J2765; J7030